=== PATIENT | female | born 1950 | race Caucasian/White ===

== ENCOUNTER 2017-12-12 13:20 | Emergency (ER) | payer MEDICARE ==
[~2017-12-12] VITALS: Ht 167.6 cm; Wt 99.4 kg
[2017-12-12] VITALS (7 sets, daily range): BP systolic 146–163; BP diastolic 77–91; PULSE 79–93; RESP 16; TEMP 97.4–97.9; O2SAT 95–99
[~2017-12-12 13:20] MED LIST: AMLO5 PO; ATOR40TA49 PO; FURO1TAB93 PO; METO25 PO; NEUR300C PO; SERT100 PO
[2017-12-12] MEDS ORDERED: APIX5TAB PO (14:21)
[2017-12-12] MEDS ORDERED: CETI10 PO (14:21)
[2017-12-12] MEDS ORDERED: SERT-129 PO (14:21)
[2017-12-12] MEDS ORDERED: METO25TA3 PO (14:21)
[2017-12-12] MEDS ORDERED: BUME1TAB PO (14:21)
[2017-12-12] MEDS ORDERED: LIPI40TA PO (14:21)
[2017-12-12] MEDS ORDERED: GABA600T PO (14:21)
[2017-12-12] MEDS ORDERED: TRAM50TA PO (14:21)
[2017-12-12] MEDS ORDERED: RANI150T PO (14:21)
[2017-12-12] MEDS ORDERED: PANT40TA3 PO (14:21)
--- NOTE | 2017-12-12 15:03 | RADRPT ---
EXAM DATE/TIME: 12/12/2017 14:41 [facility] COMPARISON: No previous studies available for comparison. INDICATIONS : Short of breath MEDICAL HISTORY : Hypertension. Myocardial infarction. AFib SURGICAL HISTORY : Pacemaker. Valve replacement ENCOUNTER: Initial ACUITY: 1 day PAIN SCORE: 0/10 LOCATION: Bilateral chest FINDINGS: 2 portable frontal views of the chest reveal a retrocardiac density with air-fluid level consistent w ith a moderate sized hiatal hernia. Lungs are clear. No effusions. Heart is normal in size. Bony stru ctures are unremarkable. CONCLUSION: 1. No acute cardiopulmonary disease. 2. Hiatal hernia. Santy Sumner Jr., MD on December 12, 2017 at 15:01 Board Certified Radiologist. This report was verified electronically.
--- NOTE | 2017-12-12 15:20 | PD ---
HPI . Swollen legs Chief Complaint: Edema Time Seen by Provider: 14:09 Travel History International Travel<30 days: No Contact w/Intl Traveler<30days: No Traveled to known affect area: No History of Present Illness HPI Patient presents with chief complaint of swelling of both legs. They have been swollen for quite some time but they had just recently started weeping. That started approximately 45 days ago. She states that it is mainly just clear yellow fluid but that the drainage from the dorsal aspect of her right foot is malodorous and yellow. She has not run a fever. She denies any shortness of breath. She states that she had been on Lasix but stopped taking the Lasix when her legs started weeping. She has not noticed any modifying factors. She states her legs hurt. She rates the pain 8/10. PFSH Past Medical History Arthritis: Yes Anxiety: Yes Cancer: No Cardiac Catheterization: Yes Cardiovascular Problems: Yes (CAD, HYPERLIPIDEMIA) High Cholesterol: Yes Chest Pain: Yes Coronary Artery Disease: Yes Diabetes: No Deep Vein Thrombosis: Yes (blood in legs, PE's) Endocrine: No Gastrointestinal Disorders: No GERD: Yes Glaucoma: No Genitourinary: No Hepatitis: No Hiatal Hernia: No Hypertension: Yes Medical other: Yes (neuropathy in legs, hx of edema in legs) Neurologic: No Psychiatric: No Reproductive: No Respiratory: Yes Integumentary: Yes Myocardial Infarction: Yes (states several) Thyroid Disease: No Ulcer: No Tetanus Vaccination: Unknown Influenza Vaccination: No ?: Not Menopausal: Yes Past Surgical History Abdominal Surgery: Yes (2008 [facility] for gi bleed, abd hernia repair) Cardiac Surgery: Yes (Stents ???) Ear Surgery: No Endocrine Surgery: No Eye Surgery: No Oral Surgery: No Thoracic Surgery: No Social History Alcohol Use: No Tobacco Use: No Substance Use: No Allergies-Medications (Allergen,Severity, Reaction): Coded Allergies: sulfamethoxazole (Unverified Allergy, Intermediate, 12/12/17) trimethoprim (Unverified Allergy, Intermediate, 12/12/17) Reported Meds & Prescriptions Reported Meds & Active Scripts Active Lovenox Inj (Enoxaparin Sodium) 100 Mg/Ml Syr 100 Mg SQ BID 30 Days Reported Gabapentin 600 Mg Tab 600 Mg PO TID Lipitor (Atorvastatin Calcium) 40 Mg Tab 40 Mg PO HS Sertraline (Sertraline HCl) 100 Mg Tab 100 Mg PO DAILY Ranitidine (Ranitidine HCl) 150 Mg Tab 150-300 Mg PO HS Pantoprazole (Pantoprazole Sodium) 40 Mg Tab 40 Mg PO DAILY Bumetanide 1 Mg Tab 1 Mg PO EVERY OTHER DAY PRN Cetirizine (Cetirizine HCl) 10 Mg Tab 10 Mg PO DAILY Metoprolol Tartrate 25 Mg Tab 25 Mg PO BID Tramadol (Tramadol HCl) 50 Mg Tab 50 Mg PO DAILY PRN Review of Systems Except as stated in HPI: all other systems reviewed are Neg General / Constitutional: No: Fever, Chills Cardiovascular: No: Chest Pain or Discomfort Respiratory: No: Shortness of Breath Skin: Positive Change in Pigmentation, Positive Other (serous fluid leaking from both legs and purulent fluid leaking from the right foot) Physical Exam Narrative GENERAL: Patient is awake and alert and does not appear to be in any distress. SKIN: warm/dry. The skin of her left lower extremity is erythematous approximately two thirds [address] the way down her dhillon and foot. There is some serous fluid leaking from the left leg. The right leg is erythematous approximately half way down the dhillon and foot. There is a wound on the dorsal aspect of the right foot which is draining malodorous, purulent fluid. HEAD: Normocephalic. Atraumatic. EYES: Pupils equal and round. No scleral icterus. No injection or drainage. ENT: No nasal bleeding or discharge. Mucous membranes pink and moist. NECK: Trachea midline. Full range of motion without pain.. CARDIOVASCULAR: Regular rate and rhythm. RESPIRATORY: No accessory muscle use. Clear to auscultation. Breath sounds equal bilaterally. GASTROINTESTINAL: Abdomen soft. Nontender. Bowel sounds present. Nondistended. MUSCULOSKELETAL: No obvious deformities. NEUROLOGICAL: Awake and alert. No obvious cranial nerve deficits. Motor grossly within normal limits. Normal speech. PSYCHIATRIC: Appropriate mood and affect; insight and judgment normal. Data Data Last Documented VS Vital Signs Date Time Temp Pulse Resp B/P (MAP) Pulse Ox O2 Delivery O2 Flow Rate FiO2 12/12/17 16:30 79 16 153/84 (107) 97 Room Air 12/12/17 14:30 97.9 Orders Orders Sepsis Workup Initiated (12/12/17 ) Complete Blood Count With Diff (12/12/17 14:37) Comprehensive Metabolic Panel (12/12/17 14:37) Prothrombin Time / Inr (Pt) (12/12/17 14:37) Act Partial Throm Time (Ptt) (12/12/17 14:37) Lactic Acid Sepsis Protocol (12/12/17 14:37) Troponin I (12/12/17 14:37) Urinalysis - C+S If Indicated (12/12/17 14:37) Blood Culture (12/12/17 14:37) Chest, Single Ap (12/12/17 14:37) Ecg Monitoring (12/12/17 14:37) Iv Access Insert/Monitor (12/12/17 14:37) Oximetry (12/12/17 14:37) Us Leg Venous Doppler Bilat (12/12/17 14:37) B-Type Natriuretic Peptide (12/12/17 14:37) Foot, Complete ([id number]) (12/12/17 15:20) Vascular Access Team Consult/P PRN (12/12/17 15:21) Vascular Poc Ultrasound (12/12/17 ) Enoxaparin Inj (Lovenox Inj) (12/12/17 16:00) Labs Laboratory Tests Test 12/12/17 14:25 12/12/17 16:30 12/12/17 18:23 Urine Color YELLOW Urine Turbidity CLEAR Urine pH 6.5 Urine Specific [place] 1.005 Urine Protein NEG mg/dL Urine Glucose (UA) NEG mg/dL Urine Ketones NEG mg/dL Urine Occult Blood NEG Urine Nitrite NEG Urine Bilirubin NEG Urine Leukocyte Esterase TRACE Urine Squamous Epithelial Cells 0-5 /hpf Microscopic Urinalysis Comment CULT NOT INDICATED Prothrombin Time 10.5 SEC Prothromb Time International Ratio 1.0 RATIO Activated Partial Thromboplast Time 22.6 SEC Blood Urea Nitrogen 10 MG/DL Creatinine 0.82 MG/DL Random Glucose 83 MG/DL Total Protein 7.2 GM/DL Albumin 3.2 GM/DL Calcium Level 8.6 MG/DL Alkaline Phosphatase 59 U/L Aspartate Amino Transf (AST/SGOT) 11 U/L Alanine Aminotransferase (ALT/SGPT) 10 U/L Total Bilirubin 0.3 MG/DL Sodium Level 137 MEQ/L Potassium Level 3.9 MEQ/L Chloride Level 104 MEQ/L Carbon Dioxide Level 25.5 MEQ/L Anion Gap 8 MEQ/L Estimat Glomerular Filtration Rate 70 ML/MIN Lactic Acid Level 1.3 mmol/L Troponin I LESS THAN 0.02 NG/ML B-Type Natriuretic Peptide 68 PG/ML White Blood Count 6.0 TH/MM3 Red Blood Count 3.51 MIL/MM3 Hemoglobin 7.9 GM/DL Hematocrit 26.5 % Mean Corpuscular Volume 75.4 FL Mean Corpuscular Hemoglobin 22.4 PG Mean Corpuscular Hemoglobin Concent 29.7 % Red Cell Distribution Width 15.4 % Platelet Count 386 TH/MM3 Mean Platelet Volume 7.9 FL Neutrophils (%) (Auto) 60.4 % Lymphocytes (%) (Auto) 26.3 % Monocytes (%) (Auto) 9.3 % Eosinophils (%) (Auto) 3.2 % Basophils (%) (Auto) 0.8 % Neutrophils # (Auto) 3.6 TH/MM3 Lymphocytes # (Auto) 1.6 TH/MM3 Monocytes # (Auto) 0.6 TH/MM3 Eosinophils # (Auto) 0.2 TH/MM3 Basophils # (Auto) 0.0 TH/MM3 CBC Comment AUTO DIFF MDM Medical Decision Making Medical Screen Exam Complete: Yes Emergency Medical Condition: Yes Differential Diagnosis Differential diagnosis includes but is not limited to edema secondary to CHF, edema secondary to malnutrition, cellulitis, DVT Narrative Course Patient presents with chief complaint of bilateral lower extremity edema. The most likely etiology is cellulitis in the setting of peripheral edema secondary to CHF. However, DVT must be ruled out. The nurses reports several attempts at IV access without success. The vascular access team was consult at but they cannot be here for another 2-1/2 hours. I discussed central line with the patient and she adamantly refuses. UA neg. Last Impressions Foot X-Ray 12/12/17 1520 Signed Impressions: Service Date/Time: Tuesday, December 12, 2017 15:57 - CONCLUSION: The osseous structures are grossly intact. Mild dorsal forefoot soft tissue swelling. Multiple small faint soft tissue calcifications the posterior distal leg. Santy Linares MD Lower Extremity Ultrasound 12/12/17 1437 Signed Impressions: Service Date/Time: Tuesday, December 12, 2017 15:34 - CONCLUSION: 1. Small area of partially occlusive thrombus within the left popliteal vein. 2. Giles's cyst within the popliteal fossa on the right. 3. 3.4 x 2.7 x 1.5 cm lymph node in the anterior right thigh. Shivam Carbajal MD Chest X-Ray 12/12/17 [id number] Signed Impressions: Service Date/Time: Tuesday, December 12, 2017 14:41 - CONCLUSION: 1. No acute cardiopulmonary disease. 2. Hiatal hernia. Santy Sumner Jr., MD I have given her an initial dose of Lovenox. I do not yet have any of her blood work back because we have not been successful in obtaining IV access. BMP Diagram 12/12/17 16:30 Total Protein 7.2, Albumin 3.2 L, Calcium Level 8.6, Alkaline Phosphatase 59, Aspartate Amino Transf (AST/SGOT) 11 L, Alanine Aminotransferase (ALT/SGPT) 10, Total Bilirubin 0.3 trop < 0.02 BNP 68 LA 1.3 CBC Diagram 12/12/17 18:23 I will discharge her on Lovenox for her DVT. I have instructed her to restart her Lasix. She should follow up with her primary care provider next week for further evaluation of anemia. Diagnosis Primary Impression: Leg edema Additional Impressions: DVT (deep venous thrombosis) Qualified Codes: I82.432 - Acute embolism and thrombosis of left popliteal vein Anemia Qualified Codes: D50.9 - Iron deficiency anemia, unspecified Additional Instructions: Start back on her Lasix. See your doctor next week for recheck. Med/Other Pt SpecificInfo: Prescription(s) given Scripts Enoxaparin Inj (Lovenox Inj) 100 Mg/Ml Syr 100 MG SQ BID for Blood Clot Prevention for 30 Days, SYRINGE 0 Refills Prov: Kandace Talamantes MD 12/12/17 Disposition: 01 DISCHARGE HOME Condition: Stable Kandace Talamantes MD Dec 12, 2017 15:20
[2017-12-12 15:31] LABS: BILIRUBIN, URINE NEG (NEG); BLOOD, URINE NEG (NEG); GLUCOSE,URINE NEG (NEG); KETONE, URINE NEG (NEG); NITRITE,URINE NEG (NEG); PH, URINE 6.5 (5.0-8.5); URINE LEUKOCYTE ESTERASE TRACE (NEG)
[2017-12-12 15:36] LABS: URINE COLOR YELLOW (YELLW/STRAW)
[2017-12-12 15:37] LABS: SQUAMOUS EPITHELIAL CELL URINE 0-5 /hpf (0-5)
[2017-12-12] MEDS ORDERED: ENOXAPARIN SODIUM 100 MG/ML SYRINGE SQ ONE (16:00)
--- NOTE | 2017-12-12 16:07 | RADRPT ---
EXAM DATE/TIME: 12/12/2017 15:34 [facility] COMPARISON: No previous studies available for comparison. INDICATIONS : Bilateral leg swelling. MEDICAL HISTORY : Myocardial infarction. Hypercholesterolemia. Hypertension. CAD. Hyperlipidemia. Chest pain. Dyspnea. Deep vein thrombosis. Arthritis. Anxiety. Blood transfusions. SURGICAL HISTORY : Cardiac catheterization. ENCOUNTER: Initial ACUITY: >1 year PAIN SCORE: 10/10 LOCATION: Bilateral legs. TECHNIQUE: Venous ultrasound of the left and right leg was performed from the inguinal ligament to the proximal calf. Real-time, color Doppler and spectral tracing, compression and augmentation techniques were us ed. FINDINGS: RIGHT LEG: There is normal compressibility of the deep venous system from the inguinal region to the proximal ca lf. No echogenic clot is seen in the lumen of the common femoral, femoral, popliteal, and posterior tibial veins. There is a normal response of the venous system to proximal and distal augmentation an d respiration. Note is made of a 3.6 x 1.9 0.9 cm Giles's cyst the popliteal fossa. Note is also made of a 3.4 x 2.7 x 1.5 cm node in the anterior right upper thigh. LEFT LEG: The common femoral vein and saphenofemoral vein are widely patent. There freely compressible througho ut their course. The grayscale imaging demonstrates only partial compression of the popliteal vein co nsistent with partially occlusive thrombus. Distally, the peroneal and tibial veins are patent. CONCLUSION: 1. Small area of partially occlusive thrombus within the left popliteal vein. 2. Giles's cyst within the popliteal fossa on the right. 3. 3.4 x 2.7 x 1.5 cm lymph node in the anterior right thigh. Shivam Carbajal MD on December 12, 2017 at 16:03 Board Certified Radiologist. This report was verified electronically.
--- NOTE | 2017-12-12 16:18 | RADRPT ---
EXAM DATE/TIME: 12/12/2017 15:57 [facility] COMPARISON: No previous studies available for comparison. INDICATIONS : Right foot swelling. MEDICAL HISTORY : Myocardial infarction. Hypercholesterolemia. Hypertension. CAD, Hyperlipidemia. Chest pain. Dyspnea. Deep vein thrombosis. Arthritis. Anxiety. Blood transfusions SURGICAL HISTORY : Coronary artery stent. ENCOUNTER: Initial ACUITY: >1 year PAIN SCORE: 10/10 LOCATION: Right foot FINDINGS: Three view examination of the right foot demonstrates no radiopaque foreign body, dislocation, or fra cture. The tarsal bones appear intact. The interphalangeal and metatarsophalangeal joints are inta ct. The calcaneus is intact. Bony mineralization is normal. Multiple small calcifications in the s oft tissues of the posterior distal leg. CONCLUSION: The osseous structures are grossly intact. Mild dorsal forefoot soft tissue swelling. Multiple smal l faint soft tissue calcifications the posterior distal leg. Santy Linares MD on December 12, 2017 at 16:15 Board Certified Radiologist. This report was verified electronically.
[2017-12-12 16:55] LABS: CHLORIDE 104 MEQ/L (98-107); SODIUM (NA) 137 MEQ/L (136-145)
[2017-12-12 16:58] LABS: CALCIUM 8.6 MG/DL (8.5-10.1)
[2017-12-12 16:59] LABS: ALBUMIN 3.2 GM/DL (3.4-5.0); BICARBONATE 25.5 MEQ/L (21.0-32.0); BLOOD UREA NITROGEN 10 MG/DL (7-18); GLUCOSE,RANDOM 83 MG/DL (74-106)
[2017-12-12 17:01] LABS: PROTHROMBIN TIME - PATIENT 10.5 SEC (9.8-11.6)
[2017-12-12 17:02] LABS: ALT (GPT) 10 U/L (10-53); AST (GOT) 11 U/L (15-37); CREATININE 0.82 MG/DL (0.50-1.00); GLOMERULAR FILTRATION RATE 70 ML/MIN (>89)
[2017-12-12 17:03] LABS: TOTAL BILIRUBIN ADULT 0.3 MG/DL (0.2-1.0); TOTAL PROTEIN 7.2 GM/DL (6.4-8.2)
[2017-12-12 17:05] LABS: ALKALINE PHOSPHATASE 59 U/L (45-117)
[2017-12-12 17:07] LABS: TROPONIN I LESS THAN 0.02 NG/ML (0.02-0.05)
[2017-12-12] MEDS ORDERED: ENOX100P SQ (18:11)
[2017-12-12 18:34] LABS: AUTOMATED NEUTROPHIL # 3.6 TH/MM3 (1.8-7.7); BASOPHIL % 0.8 % (0.0-2.0); EOSINOPHIL # 0.2 TH/MM3 (0-0.4); EOSINOPHIL % 3.2 % (0.0-4.0); HEMATOCRIT 26.5 % (35.0-46.0); HEMOGLOBIN 7.9 GM/DL (11.6-15.3); LYMPH % 26.3 % (9.0-44.0); LYMPHOCYTE # 1.6 TH/MM3 (1.0-4.8); MEAN CELL VOLUME 75.4 FL (80.0-100.0); MEAN CORPUSCULAR HEMOGLOBIN 22.4 PG (27.0-34.0); MEAN PLATELET VOLUME 7.9 FL (7.0-11.0); MONO % 9.3 % (0.0-8.0); MONOCYTE # 0.6 TH/MM3 (0-0.9); NEUT % 60.4 % (16.0-70.0); PLATELET COUNT 386 TH/MM3 (150-450); RED BLOOD COUNT 3.51 MIL/MM3 (4.00-5.30); RED CELL DISTRIBUTION WIDTH 15.4 % (11.6-17.2)
[2017-12-12 18:36] LABS: MEAN CORPUSCULAR HGB CONC 29.7 % (32.0-36.0)
[2017-12-12 19:14] LABS: OVALOCYTES 1+ (NORMAL)
== END 2017-12-12 20:17 | disposition home or self-care (01) ==
LOC: PHED 13:20
DX: I82.432 Acute embolism and thrombosis of left popliteal vein (principal); D50.9 Iron deficiency anemia, unspecified; I25.10 Atherosclerotic heart disease of native coronary artery without angina pectoris; G57.93 Unspecified mononeuropathy of bilateral lower limbs; F41.9 Anxiety disorder, unspecified; I10 Essential (primary) hypertension; E78.5 Hyperlipidemia, unspecified; I48.91 Unspecified atrial fibrillation; Z86.718 Personal history of other venous thrombosis and embolism
CPT/HCPCS: 71045; 73630; 80053; 81001; 83605; 83880; 84484; 85025; 85610; 85730; 87040; 93970; 96372; 99285; J1650